=== PATIENT | female | born 1985 | race Caucasian/White ===

== ENCOUNTER 2017-03-28 20:50 | Emergency (ER) | payer MEDICAID ==
--- NOTE | 2017-03-29 13:05 | ER ---
ADMIT: 03/28/2017 RM/LOC: ER [facility] MR#: [id number] [address] ALICE BROWN [address] [place] [address] Emergency Room Report SEX: F AGE: 32 : 1985 DATE: 03/28/2017 HISTORY OF PRESENT ILLNESS: The patient is a 32-year-old female, who came to the ER with chief complaint of vaginal bleeding and passage of clots. The patient states she gave on February 13, the 4th live child, and after delivery she states that she had mild bleeding more like spotting everyday, but she noticed the last 3 days she had more bleeding and she noticed a few clots and bleeding per patient is more than the usual menstruation. The patient also complains of intermittent periumbilical abdominal pain. The patient has a history of bipolar disorder and depression and anxiety and states that she is off her medications and sometimes during the interview, the patient cries. The patient states she is not nursing the baby. The patient denies any easy bruising. The patient denies any passage of tissue from the vagina. PHYSICAL EXAMINATION: GENERAL: When I saw the patient at 1st, she is in no distress, but when I talked more about abdominal pain, she becomes tachycardic. The patient also states the last few days she has some sore throat and some cough. The patient is alert and oriented to person, place, and time. VITAL SIGNS: The patient had temperature of 100, respiratory rate was 22. Pulse rate was 110, and after I was talking to the patient after some minutes, it decreased to 90s, and whenever the patient gets anxious, it goes to 105. Blood pressure is 141/84. HEENT/NECK: The patient has erythematous oropharynx without exudate, and the rest of the head and neck examination is normal CHEST: Clear bilaterally HEART: Normal heart sounds. ABDOMEN: Soft and nontender and no guarding or rebound. PELVIC: There is about 1 mL blood in the vaginal vault without any active bleeding from the cervix. I did not see any lesions in the vaginal canal or in the cervix area. I did not also notice any clots. The patient has no cervical motion tenderness and no adnexal tenderness. The rest of the physical examination is noncontributory and normal. LABORATORY DATA AND IMAGING: Pelvic ultrasound did not show any retained ADMIT: 03/28/2017 RM/LOC: ER [facility] MR#: [id number] [address] ALICE BROWN [address] [place] [id number] Emergency Room Report SEX: F AGE: 32 : 1985 intrauterine products of conception. Uterus and ovaries were normal on pelvic ultrasound. Beta-hCG was negative. The patient had hemoglobin of 13.4, and had normal PT/PTT and INR. UA was positive for 31 white blood cells and 2 red blood cells. EMERGENCY ROOM COURSE: The patient received Motrin in the ER. The patient was discharged to home with advice to take Motrin every 8 hours, taking cephalexin for urinary tract infection and also follow up with the primary care physician for diagnosis of urinary tract infection, abnormal uterine bleeding. At the moment, during discharge, the patient was in no pain or distress and states has normal appetite and sleep. The patient denies any suicidal or homicidal ideation. Lio Carty MD/ ryan JOB #: [id number] CC: Boni Butler MD, Attending Physician Jose Luis Price MD, Family Physician
== END 2017-03-28 23:35 | disposition home or self-care (01) ==
LOC: ER 20:50
DX: N93.9 Abnormal uterine and vaginal bleeding, unspecified (principal); N39.0 Urinary tract infection, site not specified; F32.9 Major depressive disorder, single episode, unspecified; F41.9 Anxiety disorder, unspecified; F17.210 Nicotine dependence, cigarettes, uncomplicated; Z79.899 Other long term (current) drug therapy; Z88.2 Allergy status to sulfonamides